=== PATIENT | female | born 1955 | race Caucasian/White ===

== ENCOUNTER 2017-12-21 09:21 | Day surgery (SDC) | payer OTHER ==
[~2017-12-21] VITALS: Ht 165.1 cm; Wt 104.3 kg
[~2017-12-21 09:21] MED LIST: CALCITRIOL0.25 MCG PO; LISINOPRIL10 MG PO; NORVASC5 MG PO; PRAVASTATIN SOD20 MG PO; TYLENOL EXTRA500 MG PO
[2017-12-21 10:09] VITALS: BP 177/86
[2017-12-21 10:14] LABS: INTER. NORMALIZED RATIO 1.1
[2017-12-21 10:16] LABS: PTT 33.5 SEC (25-37)
[2017-12-21] MEDS ORDERED: COLACE100 MG PO (16:05)
[2017-12-21] MEDS ORDERED: HYDROCODON-ACE1 EAC7 PO (16:05)
[2017-12-21 16:50] VITALS: BP 116/51
== END 2017-12-21 18:22 | disposition home or self-care (01) ==
LOC: SDC 09:21
PROVIDERS: Thoracic Surgery (Cardiothoracic Vascular Surgery)
PROC: 0FT44ZZ Resection of Gallbladder, Percutaneous Endoscopic Approach (ICD-10-PCS; principal; 2017-12-21)
DX: K80.10 Calculus of gallbladder with chronic cholecystitis without obstruction (principal); I10 Essential (primary) hypertension; E78.00 Pure hypercholesterolemia, unspecified
CPT/HCPCS: 85610; 85730; 88304; 93005; J0131; J0330; J0690; J1100; J1170; J2250; J2405; J2710; J3010

== ENCOUNTER 2018-02-11 09:29 | Emergency (ER) | payer OTHER ==
[~2018-02-11] VITALS: Ht 167.6 cm; Wt 104.2 kg
[~2018-02-11 09:29] MED LIST changes: +COLACE100 MG PO; +HYDROCODON-ACE1 EAC7 PO
[2018-02-11 10:13] VITALS: BP 176/109
== END 2018-02-11 10:15 | disposition home or self-care (01) ==
LOC: EME 09:29
DX: I10 Essential (primary) hypertension (principal); E78.5 Hyperlipidemia, unspecified; Z90.49 Acquired absence of other specified parts of digestive tract; Z88.8 Allergy status to other drugs, medicaments and biological substances
CPT/HCPCS: 99281; 99284